=== PATIENT | male | born 1975 | race Caucasian/White ===

== ENCOUNTER → 2016-08-01 | Outpatient (CLI) | payer OTHER ==
[2016-08-01 10:21] VITALS: BP 143/90
== END ==
LOC: MHUC 10:02
PROVIDERS: ATTEND Nurse Practitioner
DX: L03.115 Cellulitis of right lower limb (principal)
CPT/HCPCS: 99213

== ENCOUNTER 2016-09-11 22:57 | Emergency (ER) | payer OTHER ==
[~2016-09-11] VITALS: Ht 193 cm; Wt 132.9 kg
[~2016-09-11 22:57] MED LIST: ALLO300T2 PO; CLIN-78 PO; CLIN-79 PO; COLC0.6T11 PO; GLYB5TAB3 PO; HCTZ12.5T GT; HYDR-3754 PO; IBP800T PO; INSU100I14 SQ; INSU100V32 SQ; LSNP10T PO; LSNP20T PO; MELO15TA14 PO; NF-TORA10 PO; OXYC1TAB87 PO; PHEN-483 PO
[2016-09-11] MEDS ORDERED: HYDR-3702 PO (23:14)
--- NOTE | 2016-09-11 23:24 | NUR ---
LAST X RAY WAS WEEK AGO FRIDAY [place]
[2016-09-11] MEDS ORDERED: LEVOFLOXACIN 250 MG TAB (LEVAQUIN) PO SCH (23:35)
[2016-09-11] MEDS ORDERED: ED- oxyCODONE/ACETAMINOPHEN 5MG-325MG (PERCOCET) 8 TABLETS/BTL PO ONE (23:35)
[2016-09-11] MEDS ORDERED: LEVO500T16 PO (23:39)
[2016-09-11 23:48] VITALS: BP 138/86
== END 2016-09-11 23:51 | disposition home or self-care (01) ==
LOC: ED 22:58
DX: M79.644 Pain in right finger(s) (principal)
CPT/HCPCS: 99282